=== PATIENT | female | born 1955 | race Caucasian/White ===

== ENCOUNTER → 2018-11-03 | Outpatient (CLI) | payer MEDICARE, OTHER ==
[~2018-11-03] MED LIST: ACETAMINOPHN-T1 EACH; EPIPEN0.3 MG/0.3; FISH OIL 1,0001 EAC5; FISH OIL 1,2001 EAC3 PO; GLUCOSAMINE &1 EAC1; HYDROCODON-ACE1 EAC7 PO; KEFLEX500 MG PO; LIPITOR 20 MG T20 M1 PO; NORVASC 5 MG TAB5 MG PO; OSTEO BI-FLEX1 EACH PO; PAXIL20 MG PO; PREMPRO 0.3 MG1 EACH PO; PRILOSEC 20 MG20 MG PO; ULTRACET TABLET1 TAB PO; VALTREX1000 MG PO; ZANAFLEX4 M1 PO; ZIAC 10-6.25 M1 EACH PO; ZOCOR5 MG
[2018-11-03 11:16] LABS: CREATININE 0.9 mg/dL (0.6-1.3)
== END ==
LOC: M.LAB 10:44 → M.MRI 11:30
PROVIDERS: Internal Medicine
DX: M47.22 Other spondylosis with radiculopathy, cervical region (principal); M50.121 Cervical disc disorder at C4-C5 level with radiculopathy; I71.2 Thoracic aortic aneurysm, without rupture; N26.1 Atrophy of kidney (terminal); I10 Essential (primary) hypertension

== ENCOUNTER → 2018-12-27 | Outpatient (CLI) | payer MEDICARE, OTHER | LOC: M.RAD 11:23 | DX: J40 Bronchitis, not specified as acute or chronic (principal); R06.02 Shortness of breath; R05 Cough; Z98.890 Other specified postprocedural states ==

== ENCOUNTER → 2020-07-23 | Outpatient (CLI) | payer MEDICARE, OTHER | LOC: M.RAD 07-12 15:20 | PROVIDERS: ATTEND Registered Nurse Diabetes Educator | DX: Z12.31 Encounter for screening mammogram for malignant neoplasm of breast (principal); Z78.0 Asymptomatic menopausal state ==

== ENCOUNTER → 2021-12-05 | Outpatient (CLI) | payer MEDICARE, OTHER | LOC: M.ULTRA 11-26 12:53 | PROVIDERS: ATTEND Registered Nurse Diabetes Educator | DX: R93.89 Abnormal findings on diagnostic imaging of other specified body structures (principal); R16.1 Splenomegaly, not elsewhere classified; N26.1 Atrophy of kidney (terminal); K59.00 Constipation, unspecified; N95.0 Postmenopausal bleeding ==

== ENCOUNTER → 2022-01-05 | Outpatient (CLI) | payer MEDICARE, OTHER | LOC: M.NUC 01-01 12:00 | PROVIDERS: ATTEND Internal Medicine Gastroenterology | DX: R68.81 Early satiety (principal); R11.0 Nausea ==